=== PATIENT | male | born 1955 ===

== ENCOUNTER 2018-02-03 12:02 | Inpatient (IN) | payer OTHER ==
[2018-02-03 14:00] LABS: BASO % 0.8 % (0.0-2.0); EOS # 0.4 K/uL (0.0-0.7); HEMOGLOBIN 14.9 g/dL (12.0-18.0); LYMPH # 1.7 K/uL (1.0-4.3); LYMPH % 34.3 % (20.0-40.0); MEAN CELL VOLUME 98.9 fL (80.0-94.0); MEAN CORPUSCULAR HGB CONC 34.4 g/dL (33.0-37.0); MEAN PLATELET VOLUME 7.4 fL (7.2-11.7); MONO # 0.4 K/uL (0.0-0.8); MONO % 7.9 % (0.0-10.0); NEUT # 2.4 K/uL (1.8-7.0); RBC 4.36 Mil/uL (4.40-5.90); RED CELL DISTRIBUTION WIDTH 12.9 % (11.5-14.5)
--- NOTE | 2018-02-03 14:01 | C.PDOC ---
History Of Present Illness 63 yo male w/PMHx of ETOH abuse for past 30 yrs, hx of depression, non- complaint with medication, come on c/o feeling depressed, suicidal thought, denies attempts. last drink was today AM. Otherwise, pt denies any active physical complaints At the time of evaluation, pt appears awake, alert#3, appears depressed, crying. Time Seen by Provider: 02/03/18 12:47 Chief Complaint (Nursing): Psychiatric Evaluation History Per: Patient Past Medical History Reviewed: Historical Data, Nursing Documentation, Vital Signs Vital Signs: Last Vital Signs Temp 97.4 F L 02/03/18 12:26 Pulse 69 02/03/18 12:26 Resp 16 02/03/18 12:26 BP 146/97 H 02/03/18 12:26 Pulse Ox 100 02/03/18 18:14 - Medical History PMH: Depression, HTN Family History: States: No Known Family Hx - Social History Hx Tobacco Use: No Hx Alcohol Use: Yes Hx Substance Use: No - Immunization History Hx Tetanus Toxoid Vaccination: No Hx Influenza Vaccination: No Hx Pneumococcal Vaccination: No Review Of Systems Except As Marked, All Systems Reviewed And Found Negative. Constitutional: Negative for: Fever, Chills Eyes: Negative for: Vision Change ENT: Negative for: Throat Pain, Throat Swelling Cardiovascular: Negative for: Chest Pain, Palpitations Respiratory: Negative for: Cough, Shortness of Breath, Wheezing Gastrointestinal: Negative for: Nausea, Vomiting, Abdominal Pain Skin: Negative for: Rash Neurological: Negative for: Weakness, Numbness, Altered Mental Status, Headache , Dizziness Psych: Positive for: Depression, Suicidal ideation Physical Exam - Physical Exam Appears: Well, Non-toxic, No Acute Distress Skin: Normal Color, Warm, Dry, No Rash Head: Atraumatic, Normacephalic Eye(s): bilateral: PERRL Nose: No Flaring, No Discharge Oral Mucosa: Moist, Other ((+) strong alcohol odor) Throat: No Erythema, No Drooling Neck: Trachea Midline, Supple Cardiovascular: Rhythm Regular, No Murmur Respiratory: No Decreased Breath Sounds, No Accessory Muscle Use, No Stridor, No Wheezing Gastrointestinal/Abdominal: Soft, No Tenderness, No Distention, No Guarding Back: No CVA Tenderness Extremity: Normal ROM, No Tenderness, No Pedal Edema, No Deformity, No Swelling Neurological/Psych: Oriented x3, Normal Speech, Normal Motor, Normal Sensation, Normal Reflexes ED Course And Treatment - Laboratory Results Result Diagrams: 02/03/18 13:57 02/03/18 13:57 Lab Interpretation: No Acute Changes ECG: Interpreted By Me, Viewed By Me ECG Interpretation: Normal Interpretation Of ECG: SR@78/min, NAD, no acute T wave or ST-T changes. O2 Sat by Pulse Oximetry: 100 Pulse Ox Interpretation: Normal - Radiology CXR: Interpreted by Me, Viewed By Me CXR Interpretation: Yes: No Acute Disease Progress Note: Pt remained stable during the Ed evaluation. Blood work review, normal study. CXR, EKG- no acute changes. Pt is medically cleared for crisis evaluation. Pt was seen by PES and case discussed with , admission to psych floor with Dx: major depression, alchol abuse. Pt agrees with plan. Disposition - Disposition Disposition: HOME/ ROUTINE Disposition Time: 18:13 Condition: STABLE - Clinical Impression Clinical Impression: Major depression, Alcohol abuse
--- NOTE | 2018-02-03 14:09 | RAD ---
HISTORY: COMPARISON: No prior. TECHNIQUE: Chest PA and lateral FINDINGS: LINES AND TUBES: None. LUNG AND PLEURA: The lungs are well inflated and clear. There is linear atelectasis/ scarring in the left lower lobe. HEART AND MEDIASTINUM: The heart is not enlarged. The hilar and mediastinal contours are within normal limits. SKELETAL STRUCTURES: There is diffuse bone demineralization. There is an old fracture deformity in the right posterior 5th rib. VISUALIZED UPPER ABDOMEN: Normal. OTHER FINDINGS: None. IMPRESSION: No active pulmonary disease.
[2018-02-03 14:20] LABS: ALB/GLOB RATIO 1.3 (1.0-2.1); ALBUMIN 4.1 g/dL (3.5-5.0); ALT/SGPT 15 U/L (21-72); AST/SGOT 41 U/L (17-59); BLOOD UREA NITROGEN 9 mg/dL (9-20); CALCIUM 9.1 mg/dl (8.6-10.4); GFR AFRICAN-AMERICAN > 60; GFR NON-AFRICAN AMERICAN > 60
[2018-02-03 17:10] LABS: SQUAMOUS EPITHIAL < 1 /hpf (0-5); URINE BILIRUBIN NEGATIVE (NEGATIVE); URINE BLOOD NEGATIVE (NEGATIVE); URINE CLARITY Clear (Clear); URINE COLOR Yellow (YELLOW); URINE GLUCOSE (UA) NORMAL (Normal); URINE LEUKOCYTE ESTERASE NEG Leu/uL (Negative); URINE PROTEIN NEGATIVE (NEGATIVE); URINE UROBILINOGEN NORMAL mg/dL (0.2-1.0)
[2018-02-03 17:24] LABS: BARBITURATES, UR NEGATIVE (NEGATIVE); BENZODIAZEPINES, UR NEGATIVE (NEGATIVE); OPIATES, UR NEGATIVE (NEGATIVE); PHENCYCLIDINE, UR NEGATIVE (NEGATIVE)
--- NOTE | 2018-02-04 05:10 | PCM.BM ---
<Jose Benites - Last Filed: 02/04/18 05:08> Treatment Plan Problems - Problems identified on initial assessmt Depression Date Initiated: 02/03/18 Time Initiated: 19:25 Assessment reference: NA Status: Active Alcohol Abuse Date Initiated: 02/03/18 Time Initiated: 19:25 Assessment reference: NA Status: Active Treatment assets and liabiliti Patient Assests: motivated, ADL independent, negotiates basic needs Patient Liabilities: substance abuse, medical problems - Milieu Protocol Maintain good personal hygiene: daily Encourage regular showers, daily Remind patient to perform daily oral care, every shift Assist patient to perform ADL's Conduct patient checks and document Observation sheet: Q15 minutes Maintain personal safety: every shift Educate patient to report safety concerns to staff, every shift Monitor environment for contraband/sharps Medication safety: Monitor for expected outcome, potential side effects: every shift, Assess barriers to learning: every shift, Assess readiness for medication education: every shift <Konstantin Ng - Last Filed: 02/04/18 18:28> - Diagnosis (1) Major depressive disorder, recurrent severe without psychotic features Status: Acute Interventions: 02/04/18 18:29 * Assess/adjust medications daily and /or as needed * See patient on an individual basis 7x/week to assess symptoms of depression * Monitor for side effects & effectiveness of medications (2) Alcohol use disorder, severe, dependence Status: Acute Interventions: 02/04/18 18:28 * Assess 7x/week regarding severity of withdrawal * Educate regarding risks, benefits, side effects and alternatives of medications * Use Motivational Interviewing for abstinence * Use CBT for relapse prevention * Medication management for withdrawal symptoms * Encourage medication assisted treatment <Atiya Simon - Last Filed: 02/06/18 17:45> Family Contact Family involvement: Patient does not wish Family/SO involvement Family contact: Patient declines to allow family contact at present - Goals for Treatment Patient goals for treatment: "I came here because I was intoxicated and I am not interested in any treatment programs." Discharge/Continuing Care - Education Needs Education Needs: Patient Medication, Patient Coping Skills, Patient Community resources - Discharge Discharge Criteria: Ability to care for self, No longer exhibiting s/s of withdrawal, Reduction of target symptoms Discharge to:: [facility] - Treatment Team Participation Discussed with Family/SO: No Was Patient/Family/SO present at Treatment Team Meeting: Yes
--- NOTE | 2018-02-04 16:55 | PCM.PSYCH ---
Initial Psychiatric Evaluation - Initial Psychiatric Evaluation Type of Admission: Voluntary Legal Status: Capacity Chief Complaint (in patient's own words): I need help for my depression and alcohol use. History of Present Illness and Precipitating Events: Patient is a 63 years old, , employed, [place] male who was admitted due to depression and alcohol use and alcohol withdrawal. Patient reported feeling depressed for last many years, was seen by psychiatrist in the past, many years ago, was in some treatment at that time but forgot now as patient is not on any treatment for last many years. To some family issues his depression accelerated, with decreased sleep and appetite. Denied any current or past suicidal or homicidal ideations. Denied any suicidal attempts. Denied any psychotic manic or anxiety symptoms. Started drinking alcohol at 21 years of age, increased gradually. Currently he is drinking one bottle of beer and 2 small bottles of ashok every day. His last drink of alcohol was yesterday. No detox with history of one rehabilitation many years ago. Denied use of any other drugs including cocaine, cannabis or heroin. Patient smokes 2-4 cigarettes daily and diffused nicotine patch. Patient was born in [facility], moved to [facility] in [facility]. 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 Patient lives with his second and has no children from second . His height is 5 feet 6 inches and weight is 125 pounds. Current Medications: Active Medications Generic Name Dose Route Start Last Admin Trade Name Freq PRN Reason Stop Dose Admin Chlordiazepoxide 25 mg 02/03/18 20:00 02/04/18 12:11 Librium PO 02/07/18 19:59 25 mg Q6 NINA Administration Taper Chlordiazepoxide 25 mg 02/03/18 19:34 Librium PO Q6H PRN Alcohol Withdrawal Citalopram Hydrobromide 20 mg 02/04/18 17:00 Celexa PO DAILY NINA Clonidine HCl 0.1 mg 02/03/18 19:34 02/03/18 19:42 Catapres PO 0.1 mg Q6H PRN Administration Symptoms of alcohol withdrawl Folic Acid 1 mg 02/04/18 17:00 Folic Acid PO DAILY NINA Ibuprofen 400 mg 02/04/18 16:47 Motrin Tab PO Q6 PRN Pain, moderate (4-7) Multivitamins 1 tab 02/04/18 17:00 Hexavitamin PO DAILY NINA Thiamine HCl 100 mg 02/04/18 17:00 Vitamin B1 Tab PO DAILY NINA Trazodone HCl 50 mg 02/03/18 21:17 Desyrel PO HS PRN Insomnia Past Psychiatric History - Past Psychiatric History Previous Treatment History: None History of Abuse: None reported History of ETOH/Drug Use: See HPI History of Family Illness: None reported Pertinent Medical Hx (Current Medical&Sleep Prob, Allergies): Allergies Allergy/AdvReac Type Severity Reaction Status Date / Time No Known Allergies Allergy Unverified 02/03/18 12:31 No Known Home Med 02/03/18 Hypertension Review of Systems - Psychiatric Psychiatric: Depression, Hopelessness, Other Mental Status Examination - Personal Presentation Personal Presentation: Looks stated age - Affect Affect: Other (Appropriate) - Motor Activity Motor Activity: Calm - Reliability in Providing Information Reliability in Providing Information: Fair - Speech Speech: Organized - Mood Mood: Depressed - Formal Thought Process Formal Thought Process: No Impairment - Hallucinations/Delusions Hallucinations: Other (None reported) Delusions: Other - Obsessions/Compulsions Obsessions: None Compulsions: None - Cognitive Functions Orientation: Person, Place, Situation, Time Sensorium: Alert Attention/Concentration: Attentive Abstract Thinking: [place] Estimate of Intelligence: Average Judgement: Intact, as evidence by: Insight regarding need for hospitalization Memory: Recent intact, as evidence by: Ability to recall events of the day, Remote intact, as evidenced by: Ability to recall historical events - Risk Risk: Withdrawal, Diminished functioning - Strength & Assets Inventory Strength & Assets Inventory: Family support, Employment status, Cooperative - Limitations Limitations: Other DSM 5 DX - DSM 5 DSM 5 Diagnosis: Major depressive disorder recurrent severe without psychotic features Alcohol use disorder severe - Recommended/Plan of Treatment Treatment Recommendations and Plan of Treatment: Patient education Supportive therapy CBT for relapse prevention [place] for abstinence Will start Librium detox protocol for alcohol withdrawal symptoms Other when necessary medications We will start Celexa 20 mg for depression Projected ELOS: 8-10 days - Smoking Cessation Smoking Cessation Initiated: No Reason for not providing: Patient diffuse
[2018-02-04] MEDS: Multiple Vitamins Tab PO SCH (17:37)
--- NOTE | 2018-02-05 08:05 | PCM.PYCHPN ---
Psychiatric Progress Note - Psychiatric Progress Note Patient seen today, length of contact: 15 min Patient Chief Complaint: I was feeling depressed.' Problems Identified/Issues Discussed: Patient seen and evaluated, chart reviewed and discussed with the nurse. He reports depressed mood and feelings of hopelessness and helplessness. Patient remained isolated, confined and withdrawn. Patient is compliant with medications and denies any side effects. Symptoms are improving but need more time to stabilize. Support and psychoeducation given. Medication Change: No Medical Record Reviewed: Yes Mental Status Examination - Cognitive Function Orientation: Person, Place, Situation, Time Memory: Intact Attention: WNL Concentration: Poor Association: WNL Fund of Knowledge: Poor - Mood Mood: Depressed - Affect Affect: Other (Appropriate) - Speech Speech: Soft - Formal Thought Process Formal Thought Process: No Impairment - Suicidal Ideation Suicidal Ideation: No - Homicidal Ideation Homicidal Ideation: No Goal/Treatment Plan - Goal/Treatment Plan Need for Continued Stay: Severe depression anxiety, Severe functional impairment Progress Toward Problem(s) and Goals/Treatment Plan: Major depressive disorder recurrent severe without psychotic features Alcohol use disorder severe Patient education Supportive therapy CBT for relapse prevention [place] for abstinence Will start Librium detox protocol for alcohol withdrawal symptoms Other when necessary medications We will start Celexa 20 mg for depression - Smoking Cessation Smoking Cessation Initiated: No
[2018-02-05] MEDS: Multiple Vitamins Tab PO SCH (09:13)
[2018-02-06 06:51] VITALS: O2SAT 95
[2018-02-06] MEDS: Multiple Vitamins Tab PO SCH (09:38)
--- NOTE | 2018-02-06 12:46 | PCM.PYCHPN ---
Psychiatric Progress Note - Psychiatric Progress Note Patient seen today, length of contact: 16 min Patient Chief Complaint: I am feeling depressed Problems Identified/Issues Discussed: Patient seen and evaluated, chart reviewed and discussed with the nurse. He reports depressed mood and feelings of hopelessness and helplessness. Patient remained isolated, confined and withdrawn. Patient is compliant with medications and denies any side effects. Symptoms are improving but need more time to stabilize. Support and psychoeducation given. Medication Change: Yes Medical Record Reviewed: Yes Mental Status Examination - Cognitive Function Orientation: Person, Place, Situation, Time Memory: Intact Attention: WNL Concentration: Poor Association: WNL Fund of Knowledge: Poor - Mood Mood: Depressed - Affect Affect: Other (Appropriate) - Speech Speech: Soft - Formal Thought Process Formal Thought Process: No Impairment - Suicidal Ideation Suicidal Ideation: No - Homicidal Ideation Homicidal Ideation: No Goal/Treatment Plan - Goal/Treatment Plan Need for Continued Stay: Severe depression anxiety, Severe functional impairment Progress Toward Problem(s) and Goals/Treatment Plan: Major depressive disorder recurrent severe without psychotic features Alcohol use disorder severe Patient education Supportive therapy CBT for relapse prevention [place] for abstinence Will start Librium detox protocol for alcohol withdrawal symptoms Other when necessary medications We will start Celexa 20 mg for depression
[2018-02-07] MEDS: Multiple Vitamins Tab PO SCH (10:04)
--- NOTE | 2018-02-08 00:35 | PCM.PYCHPN ---
Psychiatric Progress Note - Psychiatric Progress Note Patient seen today, length of contact: 16 min Patient Chief Complaint: I am feeling little better Problems Identified/Issues Discussed: Patient seen and evaluated, chart reviewed and discussed with the nurse. He reports some improvement in his depressed mood and reports some improvement in feelings of hopelessness and helplessness. Patient remained isolated, confined and withdrawn. Patient is compliant with medications and denies any side effects. Symptoms are improving but need more time to stabilize. Support and psychoeducation given. Medication Change: No Medical Record Reviewed: Yes Mental Status Examination - Cognitive Function Orientation: Person, Place, Situation, Time Memory: Intact Attention: WNL Concentration: Poor Association: WNL Fund of Knowledge: Poor - Mood Mood: Depressed - Affect Affect: Other (Appropriate) - Speech Speech: Soft - Formal Thought Process Formal Thought Process: No Impairment - Suicidal Ideation Suicidal Ideation: No - Homicidal Ideation Homicidal Ideation: No Goal/Treatment Plan - Goal/Treatment Plan Need for Continued Stay: Severe depression anxiety, Severe functional impairment Progress Toward Problem(s) and Goals/Treatment Plan: Major depressive disorder recurrent severe without psychotic features Alcohol use disorder severe Patient education Supportive therapy CBT for relapse prevention [place] for abstinence Will start Librium detox protocol for alcohol withdrawal symptoms Other when necessary medications We will start Celexa 20 mg for depression - Smoking Cessation Smoking Cessation Initiated: No
[2018-02-08] MEDS: Multiple Vitamins Tab PO SCH (10:35)
--- NOTE | 2018-02-08 11:10 | PCM.PYCHPN ---
Psychiatric Progress Note - Psychiatric Progress Note Patient seen today, length of contact: 16 min Patient Chief Complaint: I am feeling little better Problems Identified/Issues Discussed: Patient seen and evaluated, chart reviewed and discussed with the nurse. He reports some improvement in his depressed mood and reports some improvement in feelings of hopelessness and helplessness. Patient remained isolated, confined and withdrawn. Patient is compliant with medications and denies any side effects. Symptoms are improving but need more time to stabilize. Support and psychoeducation given. Medication Change: No Medical Record Reviewed: Yes Mental Status Examination - Cognitive Function Orientation: Person, Place, Situation, Time Memory: Intact Attention: WNL Concentration: Poor Association: WNL Fund of Knowledge: Poor - Mood Mood: Depressed - Affect Affect: Constricted, Other (Appropriate) - Speech Speech: Soft - Formal Thought Process Formal Thought Process: No Impairment - Suicidal Ideation Suicidal Ideation: No - Homicidal Ideation Homicidal Ideation: No Goal/Treatment Plan - Goal/Treatment Plan Need for Continued Stay: Severe depression anxiety, Severe functional impairment Progress Toward Problem(s) and Goals/Treatment Plan: Major depressive disorder recurrent severe without psychotic features Alcohol use disorder severe Patient education Supportive therapy CBT for relapse prevention [place] for abstinence Will start Librium detox protocol for alcohol withdrawal symptoms Other when necessary medications We will start Celexa 20 mg for depression - Smoking Cessation Smoking Cessation Initiated: No
--- NOTE | 2018-02-08 13:33 | CARD ---
APPROVED REPORT EKG Measurement Heart [id number] <Conclusion> Normal sinus rhythm Normal ECG
[2018-02-09] MEDS: Multiple Vitamins Tab PO SCH (09:19)
--- NOTE | 2018-02-10 00:17 | PCM.PYCHPN ---
Psychiatric Progress Note - Psychiatric Progress Note Patient seen today, length of contact: 15 min Patient Chief Complaint: I am feeling good Problems Identified/Issues Discussed: Patient seen and evaluated, chart reviewed and discussed with the nurse. He reports improvement in his depressed mood, however he remained isolated, confined and withdrawn. Patient is compliant with medications and denies any side effects. Symptoms are improving but need more time to stabilize. Support and psychoeducation given. Medication Change: No Medical Record Reviewed: Yes Mental Status Examination - Cognitive Function Orientation: Person, Place, Situation, Time Memory: Intact Attention: WNL Concentration: WNL Association: WNL Fund of Knowledge: Poor - Mood Mood: Depressed - Affect Affect: Other (Appropriate) - Formal Thought Process Formal Thought Process: No Impairment - Suicidal Ideation Suicidal Ideation: No - Homicidal Ideation Homicidal Ideation: No Goal/Treatment Plan - Goal/Treatment Plan Need for Continued Stay: Severe depression anxiety, Severe functional impairment Progress Toward Problem(s) and Goals/Treatment Plan: Major depressive disorder recurrent severe without psychotic features Alcohol use disorder severe Patient education Supportive therapy CBT for relapse prevention [place] for abstinence Will start Librium detox protocol for alcohol withdrawal symptoms Other when necessary medications We will start Celexa 20 mg for depression - Smoking Cessation Smoking Cessation Initiated: No
[2018-02-10 06:57] VITALS: BP 121/77; PULSE 59; RESP 20; TEMP 98
[2018-02-10] MEDS: Multiple Vitamins Tab PO SCH (10:11)
--- NOTE | 2018-02-10 10:22 | PCM.PYCHDC ---
Mental Status Examination - Mental Status Examination Orientation: Person, Place, Situation, Time Memory: Intact Mood: Neutral Affect: Constricted Speech: Soft Attention: WNL Concentration: WNL Association: WNL Fund of Knowledge: WNL Formal Thought Process: No Impairment Description of patient's judgement and insight: good, fair Psychotic Thoughts and Behaviors: Denies any AVH Suicidal Ideation: No Current Homicidal Ideation?: No Discharge Summary - Discharge Note Reason for Hospitalization: Patient is a 63 years old, , employed, [place] male who was admitted due to depression and alcohol use and alcohol withdrawal. Patient reported feeling depressed for last many years, was seen by psychiatrist in the past, many years ago, was in some treatment at that time but forgot now as patient is not on any treatment for last many years. To some family issues his depression accelerated, with decreased sleep and appetite. Denied any current or past suicidal or homicidal ideations. Denied any suicidal attempts. Denied any psychotic manic or anxiety symptoms. Started drinking alcohol at 21 years of age, increased gradually. Currently he is drinking one bottle of beer and 2 small bottles of ashok every day. His last drink of alcohol was yesterday. No detox with history of one rehabilitation many years ago. Denied use of any other drugs including cocaine, cannabis or heroin. Patient smokes 2-4 cigarettes daily and diffused nicotine patch. Patient was born in [place], moved to [facility] in 2003. 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 Patient lives with his second and has no children from second . His height is 5 feet 6 inches and weight is 125 pounds. Consultations:: List each consultation separately and include: 1. Reason for request. 2. Findings. 3. Follow-up Summary of Hospital Course include:: 1. Description of specific treatment plan utilized for patients during their course of treatmen. 2. Summarize the time- course for resolution of acute symptoms and/or regressed behaviors. 3. Describe issues identified and worked on during hospitalization. 4. Describe medication utilized. 5. Describe medical problems identified and treated. 6. Reassessment of suicide risk Summary of Hospital Course: During the course of his stay, patient (pt) started progressively improving and he no longer remained irritable, depressed, and suicidal. His mood and anxiety symptoms were improved and he started attending groups and meetings and started socializing. Patient denied any feelings of hopelessness, helplessness, and worthlessness, denied any problem with the sleep or appetite, denied suicidal ideation or homicidal ideation. Pt denied any auditory or visual hallucinations. He denied any withdrawal symptoms. Some changes were made in his current medications and patient was discharged on following medications. He tolerated these medications very well and denied any side effects. He was [facility] to the [facility]. - Final Diagnosis (DSM 5) Condition upon Discharge: STABLE DSM 5: Major depressive disorder recurrent severe without psychotic features Alcohol use disorder severe Disposition: HOME/ ROUTINE Follow-up Treatment Plan: Education: Pt was educated and counseled about the risks and benefits of taking and not taking medications. Pt was educated and counseled about the risks of drinking and abusing drugs. Pt was educated and counseled to go to the ER or call 911 if pt develop suicidal ideation or homicidal ideation, worsening of symptoms or severe side effects of the meds. Prescriptions/Medication Reconciliation: Citalopram [celEXA] 20 mg PO DAILY #30 tab Folic Acid 1 mg PO DAILY #30 tab Thiamine [Vitamin B1 Tab] 100 mg PO DAILY #30 tab traZODone [Desyrel] 50 mg PO HS PRN #30 tab PRN Reason: Insomnia - Smoking Cessation Smoking Cessation Medication prescribed: No - Antipsychotic Medications Pt discharged on 2 or more routine antipsychotic medications: No
== END 2018-02-10 11:50 | disposition home or self-care (01) | DRG 430 ==
LOC: C.ER 12:02 → C.9E 18:12 → C.5E 18:21
DX: F33.2 Major depressive disorder, recurrent severe without psychotic features (principal); F10.239 Alcohol dependence with withdrawal, unspecified; R45.851 Suicidal ideations; Z91.14 Patient's other noncompliance with medication regimen; I10 Essential (primary) hypertension; F17.210 Nicotine dependence, cigarettes, uncomplicated; F41.9 Anxiety disorder, unspecified; Y90.6 Blood alcohol level of 120-199 mg/100 ml

== ENCOUNTER 2018-02-15 17:25 | Emergency (ER) | payer SELFPAY ==
--- NOTE | 2018-02-15 18:31 | C.PDOC ---
History Of Present Illness 63-year-old male, presents to the emergency department is brought to the emergence department by EMS with complaints of alcohol intoxication. Patient states "I drank too much" No other complaints at this time. Time Seen by Provider: 02/15/18 18:05 Chief Complaint (Nursing): Substance Abuse History Per: Patient, EMS History/Exam Limitations: intoxication Past Medical History Reviewed: Historical Data, Nursing Documentation, Vital Signs Vital Signs: Last Vital Signs Temp 97.5 F L 02/15/18 22:53 Pulse 84 02/15/18 22:53 Resp 20 02/15/18 22:53 BP 100/70 02/15/18 22:53 Pulse Ox 98 02/15/18 22:53 - Medical History PMH: Depression, HTN Denies: Diabetes (Patient denied), Hepatitis (Patient denied), HIV (Patient denied), Seizures (Patient denied), Sexually Transmitted Disease (Patient denied ) Family History: States: No Known Family Hx - Social History Hx Tobacco Use: No Hx Alcohol Use: Yes Hx Substance Use: No - Immunization History Hx Tetanus Toxoid Vaccination: No Hx Influenza Vaccination: No Hx Pneumococcal Vaccination: No Review Of Systems Constitutional: Negative for: Fever Psych: Negative for: Anxiety, Depression, Suicidal ideation, Withdrawal Physical Exam - Physical Exam Appears: Non-toxic, No Acute Distress (intoxicated. EtOH on breath) Skin: Warm, Dry, No Rash Head: Normacephalic Eye(s): bilateral: PERRL Nose: Normal Oral Mucosa: Moist Lips: Normal Appearing Neck: Normal ROM Cardiovascular: Rhythm Regular, No Murmur Respiratory: Normal Breath Sounds, No Accessory Muscle Use Extremity: Normal ROM, No Deformity, No Swelling Neurological/Psych: Oriented x3, Normal Speech ED Course And Treatment O2 Sat by Pulse Oximetry: 95 (RA) Pulse Ox Interpretation: Normal Reevaluation Time: 00:17 Reassessment Condition: Improved (Patient awake and alert and states he is currently homeless. Requesting to remain in ED a while longer.) Disposition - Disposition Disposition: HOME/ ROUTINE Disposition Time: 00:18 Condition: IMPROVED Forms: [facility] (Maltese) - Clinical Impression Clinical Impression: Alcohol abuse - Scribe Statement The provider has reviewed the documentation as recorded by the Scribe (Sawyer Garcia) All medical record entries made by the Scribe were at my direction and personally dictated by me. I have reviewed the chart and agree that the record accurately reflects my personal performance of the history, physical exam, medical decision making, and the department course for this patient. I have also personally directed, reviewed, and agree with the discharge instructions and disposition.
[2018-02-15 22:53] VITALS: RESP 20
[2018-02-16 00:29] VITALS: BP 101/68; PULSE 72; TEMP 98; O2SAT 98
== END 2018-02-16 00:28 | disposition home or self-care (01) ==
LOC: C.ER 17:25
DX: F10.10 Alcohol abuse, uncomplicated (principal)

== ENCOUNTER 2018-07-25 21:04 | Emergency (ER) | payer MEDICAID, OTHER ==
[2018-07-25 21:14] VITALS: TEMP 97.8; O2SAT 95
--- NOTE | 2018-07-25 21:41 | C.PDOC ---
History Of Present Illness 63 y/o male brought to ED by EMS after being found sleeping on bench with ETOH odor. Patient admits to drinking ETOH and denies SI/HI or any other physical complaints at this time. Time Seen by Provider: 07/25/18 21:37 Chief Complaint (Nursing): Substance Abuse History Per: Patient History/Exam Limitations: no limitations Onset/Duration Of Symptoms: Days Current Symptoms Are (Timing): Still Present Suicide/Self Injury Attempted (Context): None Modifying Factor(s): Alcohol Past Medical History Reviewed: Historical Data, Nursing Documentation, Vital Signs Vital Signs: Last Vital Signs Temp 97.8 F 07/25/18 21:11 Pulse 90 07/25/18 21:11 Resp 18 07/25/18 21:11 BP 117/76 07/25/18 21:11 Pulse Ox 95 07/25/18 21:44 - Medical History PMH: Depression, HTN Surgical History: No Surg Hx Family History: States: No Known Family Hx - Social History Hx Tobacco Use: No Hx Alcohol Use: Yes Hx Substance Use: No - Immunization History Hx Tetanus Toxoid Vaccination: No Hx Influenza Vaccination: No Hx Pneumococcal Vaccination: No Review Of Systems Except As Marked, All Systems Reviewed And Found Negative. Cardiovascular: Negative for: Chest Pain Gastrointestinal: Negative for: Nausea, Vomiting Psych: Positive for: Other (Substance abuse). Negative for: Suicidal ideation Physical Exam - Physical Exam Additional Physical Exam Comments: Constitutional: No acute distress. Head: Normocephalic. Atraumatic. Eyes: PERRL. ENT: Moist mucous membranes. Neck: Supple. Cardiovascular: Regular rate. Radial pulse 2+ bilaterally. Chest: No tenderness. Respiratory: Clear to auscultation bilaterally. GI: Soft. Nontender. Nondistended. Back: No CVA tenderness. Musculoskeletal: No tenderness or swelling of extremities. Skin: No rash. Neurologic: Intoxicated, ETOH on breath ED Course And Treatment O2 Sat by Pulse Oximetry: 95 (RA) Pulse Ox Interpretation: Normal Medical Decision Making Medical Decision Making: Impression: Alcohol intoxication Plan: Observe, discharge when sober. Disposition - Disposition Referrals: Fabio MANCERA,Genny Dobson [Non-Staff] - Disposition Time: 00:00 Condition: STABLE Instructions: Alcohol Abuse and Alcoholism (DC) Forms: [employer] (Icelandic) - Clinical Impression Clinical Impression: Alcohol intoxication - Scribe Statement The provider has reviewed the documentation as recorded by the Melyssa Gonzalez All medical record entries made by the Melyssa were at my direction and personally dictated by me. I have reviewed the chart and agree that the record accurately reflects my personal performance of the history, physical exam, medical decision making, and the department course for this patient. I have also personally directed, reviewed, and agree with the discharge instructions and disposition.
[2018-07-26 04:00] VITALS: BP 112/65; PULSE 80; RESP 14
== END 2018-07-26 04:36 | disposition home or self-care (01) ==
LOC: SUPCPDRO 21:04 → C.ER 21:04
DX: F10.129 Alcohol abuse with intoxication, unspecified (principal); I10 Essential (primary) hypertension

== ENCOUNTER 2018-08-01 21:02 | Emergency (ER) | payer MEDICAID ==
[2018-08-01 21:26] VITALS: O2SAT 96
--- NOTE | 2018-08-01 21:31 | C.PDOC ---
History Of Present Illness Patient presents to the ER stating he is homeless and is requesting a place to spend the night. Patient admits to drinking tonight. Denies physical complaints at this time. Time Seen by Provider: 08/01/18 21:30 Chief Complaint (Nursing): Substance Abuse History Per: Patient History/Exam Limitations: no limitations Onset/Duration Of Symptoms: Hrs Current Symptoms Are (Timing): Still Present Suicide/Self Injury Attempted (Context): None Modifying Factor(s): Alcohol Severity: None Pain Scale Rating Of: 0 Associated Symptoms: denies: Depression, Suicidal Thoughts Involuntary Hold By: None Recent travel outside of the [place]: No Past Medical History Reviewed: Historical Data, Nursing Documentation, Vital Signs Vital Signs: Last Vital Signs Temp 98.2 F 08/02/18 01:38 Pulse 78 08/02/18 01:38 Resp 16 08/02/18 01:38 BP 118/73 08/02/18 01:38 Pulse Ox 96 08/02/18 01:38 - Medical History PMH: Depression, HTN Denies: Diabetes (Patient denied), Hepatitis (Patient denied), HIV (Patient denied), Seizures (Patient denied), Sexually Transmitted Disease (Patient denie d) Family History: States: No Known Family Hx - Social History Hx Tobacco Use: No Hx Alcohol Use: Yes Hx Substance Use: No - Immunization History Hx Tetanus Toxoid Vaccination: No Hx Influenza Vaccination: No Hx Pneumococcal Vaccination: No Review Of Systems Constitutional: Negative for: Fever, Chills Cardiovascular: Negative for: Chest Pain, Palpitations Respiratory: Negative for: Cough, Shortness of Breath Gastrointestinal: Negative for: Nausea, Vomiting Neurological: Negative for: Weakness, Numbness Physical Exam - Physical Exam Appears: Non-toxic, Other (ETOH on breath, no sign of injury) Skin: Warm, Dry Head: Normacephalic Oral Mucosa: Moist Chest: Symmetrical, No Tenderness Cardiovascular: Rhythm Regular Respiratory: No Rales, No Rhonchi, No Wheezing Gastrointestinal/Abdominal: Soft, No Tenderness Neurological/Psych: Oriented x3 ED Course And Treatment O2 Sat by Pulse Oximetry: 96 (Room air) Pulse Ox Interpretation: Normal Reevaluation Time: 05:21 Reassessment Condition: Improved Disposition Counseled Patient/Family Regarding: Studies Performed, Diagnosis, Need For Followup - Disposition Referrals: Deion Olivera MD [Primary Care Provider] - Disposition: HOME/ ROUTINE Disposition Time: 21:30 Condition: FAIR Instructions: Alcohol Abuse and Alcoholism (DC) Forms: [facility] (Stateless) - Clinical Impression Clinical Impression: Alcohol abuse, Alcohol intoxication - Scribe Statement The provider has reviewed the documentation as recorded by the Scribjohn More All medical record entries made by the Scribe were at my direction and personally dictated by me. I have reviewed the chart and agree that the record accurately reflects my personal performance of the history, physical exam, medical decision making, and the department course for this patient. I have also personally directed, reviewed, and agree with the discharge instructions and disposition.
[2018-08-02 05:40] VITALS: BP 138/87; PULSE 81; RESP 18; TEMP 98.1
== END 2018-08-02 05:41 | disposition home or self-care (01) ==
LOC: C.ER 21:02 → SUPCPDRO 21:02 → C.ER 08-02 05:41
DX: F10.129 Alcohol abuse with intoxication, unspecified (principal); Y90.9 Presence of alcohol in blood, level not specified; Z59.0 Homelessness